=== PATIENT | male | born 1950 | race Caucasian/White ===

== ENCOUNTER 2017-08-06 11:11 | Day surgery (SDC) | payer BC, OTHER, MEDICARE ==
[~2017-08-06] VITALS: Ht 167.6 cm; Wt 59.0 kg
[~2017-08-06 11:11] MED LIST: ASPI81CH PO; ATOR40TA75 PO; CLOP75TA2 PO; HYDR12.55 PO; METO100T5 PO; OFLOXACIN 0.3 % (OCUFLOX) OPTH SOL 5ML OD ONE; PHENYLEPHRINE 2.5% OPHTH SOL 2ML OD ONE; PROAAER10 INH; PROPARACAINE 0.5% OPHTH SOL 15ML OD ONE; RAMI10CA PO; SYMB16INH INH; TROPICAMIDE 1% OPHTH SOLN 2ML OD ONE
[2017-08-06] MEDS ORDERED: fentaNYL 100 MCG/2 ML INJECTION (J3010) As Ordered ONE (12:47)
[2017-08-06] MEDS ORDERED: MIDAZOLAM INJ 2 MG/2 ML VIAL (J2250) As Ordered ONE (12:47)
[2017-08-06] MEDS ORDERED: LIDOCAINE 0.75%/EPINEPHRINE 0.025% IN BSS 1ML SYR INTRACAMERAL (OR ONLY) As Ordered ONE (12:49)
[2017-08-06] MEDS ORDERED: CEFUROXIME 1MG/0.1ML INTRACAMERAL INJ As Ordered ONE (12:49)
[2017-08-06] MEDS ORDERED: BALANCED SALT IRRIGATION SOLUTION 500ML BAG (FOR OR EYE MACHINE) As Ordered ONE (12:49)
[2017-08-06] MEDS ORDERED: POVIDONE-IODINE 5% OPHTH PREP SOL 30ML As Ordered ONE (12:49)
[2017-08-06] MEDS ORDERED: ACETYLCHOLINE OPHTH SOLN 1% 2ML (MIOCHOL-E) As Ordered ONE (12:49)
[2017-08-06] MEDS ORDERED: DUOVISC (0.50ML VISCOAT/0.55ML PROVISC) OPHTH KIT As Ordered ONE (12:50)
[2017-08-06 14:10] VITALS: BP 118/58
--- NOTE | 2017-08-07 19:42 | RO ---
DATE OF PROCEDURE: 08/06/2017 PREOPERATIVE DIAGNOSIS: Visually significant nuclear sclerotic cataract right eye. POSTOPERATIVE DIAGNOSIS: Visually significant nuclear sclerotic cataract right eye. PROCEDURE: Cataract extraction with use of phacoemulsification and placement of intraocular lens, AU00T0, 15.5 diopters, right eye. SURGEON: Stephon Darling DO SCOWMAN: ANESTHESIA: Local with monitored anesthesia care (MAC). COMPLICATIONS: None. POSTOPERATIVE CONDITION: Stable. INDICATION FOR SURGERY: Blurred vision right eye affecting patient's activities of daily living. DESCRIPTION OF PROCEDURE: The patient was seen in the preoperative area and properly identified. The correct operative eye was identified and marked. Attention was turned to that eye. The patient received topical antibiotics in the preoperative area. The patient then received topical dilating drops consisting of tropicamide and phenylephrine. The patient was then transferred to the operating room. The correct side was re-identified. The patient received topical anesthetics and antibiotics on the surface of the eye. The eye was prepped and draped in a sterile fashion. The upper and lower eyelids were isolated with Tegaderm tape, and the lids were held open with an adjustable speculum. Using a sideport blade, a paracentesis incision was made. Intraocular preservative-free lidocaine was then injected into the anterior chamber. Viscoelastic was then injected into the anterior chamber through the paracentesis. Using a 2.4 mm sharp-tipped keratome, the anterior chamber was entered via a temporal clear corneal incision. A continuous curvilinear capsulorrhexis was created with the aid of a 26-gauge cystotome and Utrata forceps. Hydrodissection was performed with balanced salt solution (BSS) on a blunt cannula until the nucleus was freely mobile. The crystalline lens was phacoemulsified and aspirated. Additional cohesive viscoelastic was placed into the capsular bag to deepen it. An AU00T0, 15.5 diopters lens was placed into the capsular bag and confirmed by visualizing the continuous curvilinear capsulorrhexis. Additional irrigation and aspiration was used to remove cortical material and remaining viscoelastic. The clear corneal incision was hydrated with BSS on a blunt cannula. The lens was well positioned. The incisions were then tested for leaks and found to be negative. The eye was then palpated for appropriate pressure and adjusted accordingly with BSS. The eyelid speculum was carefully removed. A shield was placed over the eye. The patient tolerated the procedure well and was discharged to the recovery unit in a stable condition. CAR
== END 2017-08-06 14:30 | disposition home or self-care (01) ==
LOC: M SDC 11:11
PROVIDERS: ATTEND Ophthalmology
DX: H25.11 Age-related nuclear cataract, right eye (principal); I25.10 Atherosclerotic heart disease of native coronary artery without angina pectoris; I25.2 Old myocardial infarction; I10 Essential (primary) hypertension; E78.5 Hyperlipidemia, unspecified; K21.9 Gastro-esophageal reflux disease without esophagitis; J44.9 Chronic obstructive pulmonary disease, unspecified; Z87.891 Personal history of nicotine dependence; Z79.02 Long term (current) use of antithrombotics/antiplatelets; Z98.61 Coronary angioplasty status; Z88.0 Allergy status to penicillin
CPT/HCPCS: 66984; J2250; J3010

== ENCOUNTER 2018-01-07 08:06 | Day surgery (SDC) | payer BC, OTHER, MEDICARE ==
[2018-01-07] MEDS: TROPICAMIDE 1% OPHTH SOLN 2ML OS (10:03)
[2018-01-07] MEDS: PHENYLEPHRINE 2.5% OPHTH SOL 2ML OS (10:03)
[2018-01-07] MEDS: PROPARACAINE 0.5% OPHTH SOL 15ML OS (10:03)
[2018-01-07] MEDS: OFLOXACIN 0.3 % (OCUFLOX) OPTH SOL 5ML OS (10:03)
[2018-01-07] MEDS: BALANCED SALT IRRIGATION SOLUTION 500ML BAG (FOR OR EYE MACHINE) As Ordered (10:49)
[2018-01-07] MEDS: DUOVISC (0.50ML VISCOAT/0.55ML PROVISC) OPHTH KIT As Ordered (10:49)
[2018-01-07] MEDS: POVIDONE-IODINE 5% OPHTH PREP SOL 30ML As Ordered (10:49)
[2018-01-07] MEDS: LIDOCAINE 0.75%/EPINEPHRINE 0.025% IN BSS 1ML SYR INTRACAMERAL (OR ONLY) As Ordered (10:50)
[2018-01-07] MEDS ORDERED: MIDAZOLAM INJ 2 MG/2 ML VIAL (J2250) As Ordered (11:02)
[2018-01-07] MEDS ORDERED: fentaNYL 100 MCG/2 ML INJECTION (J3010) As Ordered (11:02)
== END 2018-01-07 12:19 | disposition home or self-care (01) ==
LOC: M SDC 08:06
DX: H25.12 Age-related nuclear cataract, left eye (principal); I10 Essential (primary) hypertension; I25.10 Atherosclerotic heart disease of native coronary artery without angina pectoris; I25.2 Old myocardial infarction; E78.00 Pure hypercholesterolemia, unspecified; I34.9 Nonrheumatic mitral valve disorder, unspecified; K21.9 Gastro-esophageal reflux disease without esophagitis; R29.898 Other symptoms and signs involving the musculoskeletal system; J44.9 Chronic obstructive pulmonary disease, unspecified; R06.02 Shortness of breath; Z88.0 Allergy status to penicillin; Z88.8 Allergy status to other drugs, medicaments and biological substances; Z91.011 Allergy to milk products; Z79.899 Other long term (current) drug therapy; Z79.82 Long term (current) use of aspirin; Z95.5 Presence of coronary angioplasty implant and graft; Z87.891 Personal history of nicotine dependence
CPT/HCPCS: 66984

== ENCOUNTER → 2020-09-13 | Outpatient (CLI) | payer MEDICARE, BC, OTHER ==
[~2020-09-13] MED LIST changes: +ASPI-255 PO; -ASPI81CH PO; +ASPI81CH49 PO; +ATRO0.063; +IPRA2IN; -OFLOXACIN 0.3 % (OCUFLOX) OPTH SOL 5ML OD ONE; -PHENYLEPHRINE 2.5% OPHTH SOL 2ML OD ONE; -PROPARACAINE 0.5% OPHTH SOL 15ML OD ONE; -RAMI10CA PO; +RAMI1CAP26 PO; +SYMB80INH; -TROPICAMIDE 1% OPHTH SOLN 2ML OD ONE
== END ==
LOC: M LABSMTC 10:30
PROVIDERS: ATTEND Internal Medicine Cardiovascular Disease
DX: Z11.52 Encounter for screening for COVID-19 (principal)